=== PATIENT | female | born 1955 | race Caucasian/White ===

== ENCOUNTER 2018-12-27 18:28 | Inpatient (IN) | payer OTHER ==
[~2018-12-27] VITALS: Ht 157.5 cm; Wt 66.4 kg
--- NOTE | ~2018-12-27 | HC ---
[facility] [place] [address] CONSULTATION Name: ROSE HERNANDEZ Room #: 356-P ADM IN M.R.#: [id number] Admission: 12/27/18 ������������������ Attend Phys: Lamin Morgan MD Discharge: ������������������ Date of : 59 Report #: [id number] THIS REPORT FOR: //name// CC: Lamin Sher DATE OF SERVICE: 01/05/2019 HISTORY OF PRESENT ILLNESS: This is a 73-year-old white female admitted with acute mental status changes, was noted to have a critically severe sodium of 117. She had mental status changes with confusion, toxic metabolic encephalopathy. She also had hypokalemia, bilateral lower extremity cellulitis as well as acute respiratory failure with acute exacerbation of chronic obstructive pulmonary disease. She has been followed closely and was treated in the intensive care unit, followed by Pulmonary Medicine. Continuing to get BiPAP at night with nasal prong O2 during the day. She has had some progress and improvement as far as her cognition. Continuing to treat her hyponatremia. Last sodium was 131 with K 3.0. We are seeing her in rehabilitation medicine consultation. PAST MEDICAL HISTORY: Includes hypertension, COPD. She had a blood clot with DVT and pulmonary embolism with control and . History of chronic neck pain and back pain. MEDICATIONS: Please see the full medication listing. ALLERGIES: Include vitamins, herbals, and supplements per report. HABITS: Tobacco abuse, 1-2 packs per day, [id number]. SOCIAL HISTORY: House, spouse. No assistive device, 2 steps in, 14 steps to the bedroom was independent in the community without gait aids. works, but she notes that he has some flexibility. They have 6 children of which several of them are in the area. REVIEW OF SYSTEMS: No complaints of current shortness of breath. Note, she has some emotional lability, decreased endurance concerns regarding her balance. No chest pain, no abdominal discomfort. No fever or chills, bowel or bladder changes. PHYSICAL EXAMINATION: GENERAL: A 63-year-old white female in no obvious distress. VITAL SIGNS: Last recorded temperature 97.7, pulse 95, respirations 21, blood pressure 118/68. The patient is alert. HEENT: Appeared to be benign. She does have some emotional lability, almost started to cry with her family assisting her. She did better with change in [facility] [address] [place] [address] CONSULTATION Name: ROSE HERNANDEZ Room #: 356-P [facility] IN M.R.#: [id number] Admission: 12/27/18 ������������������ Attend Phys: Lamin Morgan MD Discharge: ������������������ Date of : 59 Report #: [id number] topic. NEUROLOGIC: There is some definite latency to her responses. Facies appeared symmetric. She is on nasal prong O2, currently 3 liters. Functional range of motion of the upper extremity strength is grade 4-/5. DTRs are trace to 1. Lower extremities, no focal calf swelling, functional range of motion with strength grade 3+ to 4-/5. DTRs are trace to 1. She is min assist with sit to stand, min assist to ambulate 100 feet, has decreased balance, lower extremity dressing is min assist. ASSESSMENT: A 73-year-old white female with the following problem list: 1. Toxic metabolic encephalopathy. 2. Gait instability with decreased balance. 3. Critically severe hyponatremia. 4. Hypokalemia. 5. Acute respiratory failure. 6. Acute exacerbation of chronic obstructive pulmonary disease. 7. Bilateral lower extremity cellulitis. 8. Paroxysmal atrial fibrillation with cardiology involved. 9. Generalized anxiety disorder. 10. Chronic tobacco abuse. 11. History of chronic neck and back pain. PLAN: Would agree with a short acute, in-hospital, inpatient rehabilitation stay to maximize her functional independence, so she can return back to the home setting. With transfer to the acute inpatient rehab sandhu, she could have the same physicians continue to follow for good continuity of care, which would be in this patient's best interest. She continues on the CPAP at night with pulmonary closely involved as well as the multiple other consulting physicians. Discussion was held with the family members that were present. Insurance precertification issues to be checked on. Several family members are there and involved with the discussion. ��������������������������������������������� ���������������������������������������� By: ��������������������������������������������� 1326 [id number] Itz Grande MD /nt
[2018-12-27 18:28] VITALS: BP 111/60
[2018-12-27] MEDS ORDERED: NORVASC5 MG PO (19:11)
[2018-12-27] MEDS ORDERED: ATENOLOL 100MG100 M2 PO (19:11)
[2018-12-27] MEDS ORDERED: PAXIL10 MG PO (19:12)
[2018-12-27] MEDS ORDERED: BINOSTO70 MG PO (19:12)
[2018-12-27] MEDS ORDERED: ZESTORETIC 20-1 EAC3 PO (19:12)
[2018-12-27] MEDS ORDERED: NORCO 5-325 TA1 EACH PO (19:13)
[2018-12-27] MEDS ORDERED: FLEXERIL PO (19:13)
[2018-12-27 19:14] LABS: HEMATOCRIT 38.4 % (37.0-47.0); HEMOGLOBIN 13.5 gm/dL (12.0-15.0); MCH 31.1 pg (26.0-34.0); MCHC 35.3 g/dL (28.0-37.0); MCV 88.2 fL (80.0-100.0); PLATELET COUNT 436 thou/uL (150-400); RBC 4.35 mil/uL (4.20-5.00); RDW 13.2 % (10.5-14.5); WBC 13.6 thou/uL (4.0-11.0)
[2018-12-27 19:18] LABS: URINE BILIRUBIN NEGATIVE (Negative); URINE BLOOD TRACE (Negative); URINE CLARITY CLEAR; URINE COLOR YELLOW; URINE GLUCOSE-RANDOM* NEGATIVE (Negative); URINE KETONES 1+ (Negative); URINE LEUKOCYTES-REFLEX NEGATIVE (Negative); URINE NITRITE-REFLEX NEGATIVE (Negative); URINE PROTEIN (DIPSTICK) NEGATIVE (Negative); URINE UROBILINOGEN 0.2 E.U./dl (0.2-1.0)
[2018-12-27 19:25] LABS: BE(vivo) 6.4 mmol/L (-2 to +3); PCO2 39.5 mmHg (35.0-45.0); PO2 86.8 mmHg (80.0-100.0); pH 7.499 (7.360-7.450); sO2 97.3 % (92.0-98.0)
[2018-12-27 19:28] LABS: APTT 29.1 Seconds (24.5-32.8); PROTIME 10.7 Seconds (9.3-11.4)
[2018-12-27 19:29] LABS: AMP/METHAMP Negative (Negative); BARBITURATES Negative (Negative); BENZODIAZEPINES Negative (Negative); COCAINE Negative (Negative); METHADONE Negative (Negative); OPIATES Negative (Negative); PCP Negative (Negative)
[2018-12-27 19:33] LABS: ALBUMIN 3.4 g/dL (3.4-5.0); BUN 7 mg/dL (7-18); CHLORIDE 78 mmol/L (98-107); CO2 32 mmol/L (21-32); CREATININE 0.6 mg/dL (0.6-1.0); DIRECT BILIRUBIN 0.2 mg/dL (<0.1-0.3); GLUCOSE 134 mg/dL (74-106); SGOT 42 U/L (15-37); SGPT 34 U/L (30-65); TOTAL BILIRUBIN 0.9 mg/dL (<0.1-1.0); TOTAL PROTEIN 7.3 g/dL (6.4-8.2); TROPONIN-I <0.06 ng/mL (<0.06)
[2018-12-27 19:35] LABS: ABSOLUTE NEUTROPHILS 12.9 thou/uL (1.4-8.2)
[2018-12-27 19:37] LABS: ANION GAP 7 mmol/L (7-16)
[2018-12-27 19:40] LABS: POTASSIUM 2.5 mmol/L (3.5-5.1); SODIUM 117 mmol/L (136-145)
[2018-12-27 20:18] VITALS: BP 111/61
[2018-12-27 20:25] VITALS: BP 110/67
[2018-12-27 20:40] VITALS: BP 119/50
[2018-12-27 23:50] VITALS: BP 112/71
[2018-12-28 06:44] VITALS: BP 113/55
[2018-12-28 06:58] LABS: CALCIUM 8.2 mg/dL (8.5-10.1); CREATININE 0.5 mg/dL (0.6-1.0)
[2018-12-28 06:59] LABS: POTASSIUM 3.5 mmol/L (3.5-5.1)
[2018-12-28 07:22] VITALS: BP 102/50
--- NOTE | 2018-12-28 07:33 | NUR ---
PATIENT IS ALERT TO SELF SITUATION AND TIME. PATIENT IS ON 2L NC. PATIENT IS SOB UPON AMBULATION TO BATH ROOM BSC IS ENCOURAGED. PATIENT IS NSR ON TELE. PATIENTS LUNGS ARE DIMINISHED AND WHEEZY. PATIENT REFUSES RT TREATMENTS. PATIENTS ELECTROLYTES REPLACED. PATIENT HAS ABRASION TO LT WRIST LT FOREHEAD. PATIENT HAS REDDNESS TO BILATERAL FEET WITH 2(+) EDEMA. PATIENT IS RESTING COMFORTABLY IN BED. WCM. FALL PRECAUTIONS IN PLACE.
--- NOTE | 2018-12-28 08:00 | EKG ---
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 : 1955 Requested By: Juwan Bah Order Number: [id number] MD: Asad Monaco Measurements Intervals [place] Rate: 69 P: 58 CT: 207 QRS: 6 QRSD: 81 T: 49 QT: 413 QTc: 443 Interpretive Statements Sinus rhythm Nonspecific ST segment abnormality Compared to ECG 02/20/2004 07:21:25 No significant change was found Electronically Signed On 12-28-2018 8:00:42 CDT by Asad Monaco [email or web address] ��������������������������������������������� <ELECTRONICALLY SIGNED> ���������������������������������������� By: Asad Monaco MD, [facility] ��������������������������������������������� 12/28/18 0800 1848 Asad Monaco MD, [facility] /EPI
[2018-12-28 12:37] VITALS: BP 98/50
--- NOTE | 2018-12-28 13:17 | 2DMMODE ---
[facility] [address] [place] [address] 2 D/M-MODE ECHOCARDIOGRAM Name: ROSE HERNANDEZ Room #: 355-P ADM IN M.R.#: [id number] ������������� Admission: 12/27/18 ������������� Attend Phys: Lamin Morgan MD Discharge: ��� ������������� ��� Date of : 59 Date of Service: 12/28/18 1316 �� Report #: [id number] �������� ��������������������������������������������[id number] THIS REPORT FOR: //name// APPROVED REPORT Study performed: 12/28/2018 12:12:53 EXAM: Comprehensive 2D, Doppler, and color-flow Echocardiogram Patient Location: Echo lab Room #: 355 Status: routine BSA: 1.67 HR: 80 bpm BP: 1032/50 mmHg Rhythm: NSR Other Information Study Quality: Adequate Indications COPD Dyspnea Hypertension/HDD 2D Dimensions RVDd: 32.73 mm IVSd: 9.07 (7-11mm) LVOT Diam: 18.71 (18-24mm) LVDd: 39.76 mm PWd: 9.17 (7-11mm) Ascending Ao: 25.27 (22-36mm) LVDs: 26.33 (25-40mm) Aortic Root: 30.02 mm IVC: 14.00 mm Volumes Left Atrial Volume (Systole) Single Plane 4CH: 39.55 mL Single Plane 2CH: 40.39 mL LA ESV Index: 26.00 mL/m2 Aortic Valve AoV Peak Justin.: 1.62 m/s AO Peak Gr.: 10.44 mmHg LVOT Max P.14 mmHg LVOT Max V: 1.34 m/s KATHERINE Vmax: 2.27 cm2 Mitral Valve E/A Ratio: 1.5 [facility] [place] [address] 2 D/M-MODE ECHOCARDIOGRAM Name: ROSE HERNANDEZ Room #: 355-[facility].#: [id number] ������������� Admission: 12/27/18 ������������� Attend Phys: Lamin Morgan MD Discharge: ��� ������������� ��� Date of : 59 Date of Service: 12/28/18 1316 �� Report #: [id number] �������� ��������������������������������������������[id number] MV Decel. Time: 157.04 ms MV E Max Justin.: 0.88 m/s MV A Justin.: 0.59 m/s MV PHT: 45.54 ms IVRT: 83.04 ms Pulmonary Valve PV Peak Justin.: 1.17 m/s PV Peak Gr.: 5.44 mmHg Pulmonary Vein P Vein S: 0.60 m/s P Vein A: 0.24 m/s P Vein D: 0.43 m/s P Vein A Dur.: 83.0 msec P Vein S/D Ratio: 1.40 Tricuspid Valve TR Peak Justin.: 2.77 m/s TR Peak Gr.: 30.72 mmHg PA Pressure: 36.00 mmHg Left Ventricle The left ventricle is normal size. There is normal LV segmental wall motion. There is normal left ventricular wall thickness. Left ventricular systolic function is normal. The left ventricular ejection fraction is within the normal range. LVEF is 60-65%. The left ventricular diastolic function is normal. Right Ventricle The right ventricle is normal size. The right ventricular systolic function is normal. Atria The left atrium size is normal. The right atrium size is normal. Aortic Valve The aortic valve is normal in structure. No aortic regurgitation is present. There is no aortic valvular stenosis. Mitral Valve The mitral valve is normal in structure. Trace mitral regurgitation. No evidence of mitral valve stenosis. Tricuspid Valve The tricuspid valve is normal in structure. There is trace to mild tricuspid regurgitation. Estimated PAP 36 mmHg. There is mild pulmonary hypertension. [address] [address] 2 D/M-MODE ECHOCARDIOGRAM Name: ROSE HERNANDEZ Room #: 355-P [facility] IN [place].#: [id number] ������������� Admission: 12/27/18 ������������� Attend Phys: Lamin Morgan MD Discharge: ��� ������������� ��� Date of : 59 Date of Service: 12/28/18 1316 �� Report #: [id number] �������� ��������������������������������������������[id number] Pulmonic Valve The pulmonary valve is normal in structure. There is no pulmonic valvular regurgitation. Great Vessels The aortic root is normal in size. IVC is normal in size and collapses >50% with inspiration. Pericardium There is no pericardial effusion. <Conclusion> The left ventricle is normal size. There is normal left ventricular wall thickness. Left ventricular systolic function is normal. The left ventricular diastolic function is normal. The right ventricle is normal size. The left atrium size is normal. The right atrium size is normal. The aortic valve is normal in structure. Trace mitral regurgitation. There is trace to mild tricuspid regurgitation. Estimated PAP 36 mmHg. ��������������������������������������������� <ELECTRONICALLY SIGNED> ���������������������������������������� By: Hunter Bird MD ��������������������������������������������� 12/28/18 1316 15 1316 Hunter Bird MD /INF
--- NOTE | 2018-12-28 13:54 | NUR ---
ASSESSMENT: CM REVIEWED CHART AND MET WITH PATIENT AND HER TWO DAUGHTERS AT THE BEDSIDE. PT WAS ADMITTED WITH HYPONATREMIA/AMS. PT REPORTS SHE LIVES IN A HOUSE WITH HER . PT REPORTS SHE HAS TWO STEPS TO ENTER WITH NO HANDRAILS. PT REPORTS SHE HAS ABOUT 14 STEPS WITH HANDRAILS TO HER BEDROOM. PT REPORTS BEING FULLY INDEPENDENT WITH ADLS AND AMBULATION. PT REPORTS SHE DOES NOT WEAR OXYGEN AT HOME AND DOES NOT USE ANY DME. PT STATES SHE IS VERY INDEPENDENT. PT REPORTS SHE HAS NOT HAD HH IN THE PAST NOR BEEN TO A SNF/REHAB. CM DISCUSSED ROLE. PT STATING SHE WILL HAVE NO NEEDS AND SHE WANTS TO GO HOME TODAY. DAUGHTERS ENCOURAGING THEIR MOTHER TO STAY. CM WILL CONTINUE TO FOLLOW TO ASSIST NEEDED. PT STATING SHE WILL NOT NEED HH.
[2018-12-28 16:15] VITALS: BP 105/79
--- NOTE | 2018-12-28 17:56 | NUR ---
PATIENT DOES NOT SEEM TO BE IN PAIN. PLEASANT WITH CARE. SHE INSISTS TO STAFF AND FAMILY SHE IS NOT SICK ENOUGH TO BE HERE. SHE WANTS TO GO TO HOME. SODIUM CONT TO IMPROVE BUT NOT ENOUGH. SHE WAS IN MRI/ECHO FOR SO LONG HER NOON SODIUM WAS DRAWN AT 2PM. A RESULT HER 1800 SODIUM WILL BE DONE AT 2000. PATIENT CONT TO REST IN BED. FAMILY IN ROOM. SHE WAS NOTED TO AHVE SOB AND PREFERRED TO SIT TO BREATH BETTER. BREATHING IS DIFFICULT WHEN SHE LIES FLAT OF JUST SLIGHTLY ELEVATED. WILL CONT WITH PLAN OF CARE.
[2018-12-28 20:05] VITALS: BP 102/61
[2018-12-29 04:00] VITALS: BP 124/88
--- NOTE | 2018-12-29 06:08 | NUR ---
PATIENT IS PROGRESSING SLOWLY IN HER CARE PLAN. VITAL SIGNS STABLE WITH PATIENT HAVING NO COMPLAINTS OF NAUSEA. PATIENT DID COMPLAIN OF MINIMAL PAIN DUE TO HEADACHE WHICH WAS TREATED EFFECTIVELY WITH PRN MEDICATION AND NON PHARMACOLOGICAL INTERVENTION. PATIENT REMAINED MOSTLY ORIENTED THROUGHOUT SHIFT WITH ONLY SLIGHT CONFUSION NOTED ONCE WHEN PATIENT WAS AWOKEN FOR 0400 ASSESSMENT. BREATHING STABLE ON TWO LITERS NASAL CANNULA EVIDENCED BY SPOT OXYGENATION CHECKS. SHE HAS BEEN UP TO RESTROOM MULTIPLE TIMES WITH ASSISTANCE INCIDENT FREE BUT REMAINS A HIGH FALL RISK. PATIENT IS ANXIOUS TO DISCHARGE SOON. CONTINUE PLAN OF CARE.
[2018-12-29 08:02] VITALS: BP 125/97
[2018-12-29 10:29] LABS: ABSOLUTE NEUTROPHILS 7.4 thou/uL (1.4-8.2); BASOPHILS 0.4 % (0.0-2.0); EOSINOPHILS 0.2 % (0.0-3.0); HEMATOCRIT 36.3 % (37.0-47.0); HEMOGLOBIN 12.6 gm/dL (12.0-15.0); LYMPHOCYTES 9.8 % (24.0-44.0); MCH 31.7 pg (26.0-34.0); MCHC 34.8 g/dL (28.0-37.0); MCV 91.1 fL (80.0-100.0); MONOCYTES 6.9 % (1.0-8.0); PLATELET COUNT 426 thou/uL (150-400); POLYS 82.7 % (36.0-66.0); RBC 3.98 mil/uL (4.20-5.00); RDW 13.2 % (10.5-14.5)
[2018-12-29 10:30] LABS: BE(vivo) 1.7 mmol/L (-2 to +3); HCO3 24.6 mmol/L (22.0-26.0); PCO2 33.6 mmHg (35.0-45.0); PO2 134.2 mmHg (80.0-100.0); pH 7.483 (7.360-7.450); sO2 98.9 % (92.0-98.0)
[2018-12-29 10:43] LABS: CALCIUM 8.4 mg/dL (8.5-10.1); CREATININE 0.7 mg/dL (0.6-1.0); MAGNESIUM 1.9 mg/dL (1.8-2.4)
[2018-12-29 10:44] LABS: POTASSIUM 2.8 mmol/L (3.5-5.1)
[2018-12-29 11:52] VITALS: BP 119/77
--- NOTE | 2018-12-29 14:37 | NUR ---
ON-GOING ASSESSMENT: CM REVIEWED CHART AND MET WITH PATIENT AT THE BEDSIDE. PT REPORTS SHE IS HOPING SHE WILL BE ABLE TO GO HOME TOMORROW. PTS SODIUM IS 128 AND PT IS STILL ON 2L OF OXYGEN. PT IS HOPEFUL TO GET OFF OXYGEN BEFORE GOING HOME SHE DOES NOT HAVE IT ARRANGED AT HOME. PT DOES NOT FEEL SHE NEEDS HH. CM WILL CONTINUE TO FOLLOW TO ASSIST NEEDED.
--- NOTE | 2018-12-29 16:12 | NUR ---
Assumed care of Pt at 0700. Pt alert and oriented x4 in mild resp distress. very diminished sounds on 2L NC. up w/ stand by assist - wobbly gait. abx regimen changed by physician. family requesting pulm consult - physician notified. potassium critically low - physician notified - being replaced. SA on telemetry. calls out appropriately. pt progressing toward poc goals.
[2018-12-29 16:13] VITALS: BP 112/79
[2018-12-29 19:25] VITALS: BP 120/79
[2018-12-30 03:57] VITALS: BP 118/83
--- NOTE | 2018-12-30 04:34 | NUR ---
SLEPT MOST OF SHIFT. DENIES COMPLAINTS OF PAIN, BECOMES SHORTNESS OF AIR WITH ACTIVITY. PATIENT ALERT AND ORIENTED X4. AT BEDSIDE. TELEMETRY SHOWS AFIB AT SHIFT CHANGE, EKG DONE FOR VERIFICATION. Ericka BORJA MEDICAL TERRITORY MANAGER NOTIFIED. AT REST RATE 90 - 110. WITH ACITIVITY WILL INCREASE TO 120-150. UP WITH STANDBY ASSIST ONLY. MAINTAIN SAFE ENVIRONMENT. WORKING ON GOALS AND PLAN OF CARE FOR NOC. NOT PROGRESSING TOWARDS DISCHARGE GOALS AT THIS TIME. CONTINUE TO ASSES CLOESLY.
[2018-12-30 05:29] LABS: HEMATOCRIT 36.2 % (37.0-47.0); HEMOGLOBIN 12.6 gm/dL (12.0-15.0); MCH 31.7 pg (26.0-34.0); MCHC 34.8 g/dL (28.0-37.0); MCV 91.3 fL (80.0-100.0); RBC 3.96 mil/uL (4.20-5.00); RDW 13.3 % (10.5-14.5); WBC 4.5 thou/uL (4.0-11.0)
[2018-12-30 05:45] LABS: CALCIUM 8.9 mg/dL (8.5-10.1); CREATININE 0.6 mg/dL (0.6-1.0); MAGNESIUM 1.7 mg/dL (1.8-2.4)
[2018-12-30 07:14] VITALS: BP 128/83
--- NOTE | 2018-12-30 07:21 | EKG ---
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 : 1955 Requested By: Delisa Senior Order Number: [id number] MD: Asad Monaco Measurements Intervals [place] Rate: 101 P: ID: QRS: 33 QRSD: 81 T: 53 QT: 344 QTc: 446 Interpretive Statements Atrial fibrillation Nonspecific ST segment abnormality Compared to ECG 12/27/2018 18:48:20 Sinus rhythm no longer present Electronically Signed On 12-30-2018 7:21:44 CDT by Asad Monaco [email or web address] ��������������������������������������������� <ELECTRONICALLY SIGNED> ���������������������������������������� By: Asad Monaco MD, [facility] ��������������������������������������������� 12/30/18 0721 36 36 Asad Monaco MD, [facility] /EPI
[2018-12-30 11:14] VITALS: BP 122/88
--- NOTE | 2018-12-30 15:17 | EKG ---
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 : 1955 Requested By: Asad Monaco Order Number: [id number] MD: Francisco Fu Measurements Intervals [place] Rate: 93 P: [place]: QRS: 27 QRSD: 83 T: 33 QT: 353 QTc: 440 Interpretive Statements Atrial fibrillation Ventricular premature complex Compared to ECG 12/29/2018 21:37:13 Ventricular premature complex(es) now present ST (T wave) deviation no longer present Electronically Signed On 12-30-2018 15:17:09 CDT by Francisco Fu [email or web address] ��������������������������������������������� <ELECTRONICALLY SIGNED> ���������������������������������������� By: Francisco Fu MD ��������������������������������������������� 12/30/18 1517 1157 1157 Francisco Fu MD /EPI
[2018-12-30 15:19] VITALS: BP 124/80
--- NOTE | 2018-12-30 17:34 | NUR ---
Assumed care of Pt at 0700. More labored breathing this morning. severely diminished lung sounds. EKG showing controlled afib. fluid restriction initiated. pulmonary and cardiology consulted. CT chest negative for PE. many family members at bedside throughout day. breathing more comfortably throughout shift. up w/ SBA. showered. calls out appropriately. slow progress toward poc goals.
--- NOTE | 2018-12-30 19:10 | EEG ---
[facility] [place] [address] ELECTROENCEPHALOGRAM Name: ROSE HERNANDEZ Room #: 355-P ADM IN M.R.#: [id number] ������������������ Admission: 12/27/18 ������������������ Attend Phys: Lamin Morgan MD Discharge: ������������������ Date of : 59 Report #: [id number] ����������������������������������������������������������������� [id number] THIS REPORT FOR: //name// CC: Lamin Sher DATE OF SERVICE: 12/28/2018 This patient is being evaluated for altered mental status. EEG was done by placing the electrodes by standard 10-20 system of electrode placement. Both referential and sequential montages were used for recording. Background activity in this patient's EEG is about 10 Hz and 30 microvolt. The patient became drowsy that is associated with bilateral slowing and vertex sharp waves. Photic stimulation was unremarkable. Throughout the record, no active epileptiform activity was noticed. IMPRESSION: This patient's EEG is intermixed with theta range slowing on both sides that is a mild finding and can occur with drowsiness, effect of psychotropic medication, encephalopathy, etc. No active epileptiform activity was noticed during this record and the EEG was mostly unremarkable. Thank you very much for this referral. ���������������������������������������� <ELECTRONICALLY SIGNED> ���������������������������������������� By: Jason Rodriguez MD ��������������������������������������������� 12/30/18 1910 8 Jason Rodriguez MD /nt
[2018-12-30 19:31] VITALS: BP 127/67
[2018-12-31] VITALS (15 sets, daily range): BP systolic 112–143; BP diastolic 76–102
--- NOTE | 2018-12-31 03:29 | NUR ---
ASSUMED PT CARE AROUND 1900. A&OX4, FORGETFUL. PT ANXIOUS AT TIMES. PRN ANXIETY MEDICATION GIVEN. C/O NECK PAIN. PAIN MEDICATION GIVEN WITH SOME RELIEF. UP W/ SBA TO BTR. SOA W/ EXERTION. FAMILY AT BEDSIDE MOST OF THE NIGHT. AFIB ON TELE. RATE 90S-110S MOST OF THE SHIFT. PT SLEPT OFF AND ON DURING THE NIGHT. FALL PRECAUTIONS IN PLACE. PROGRESSING SLOWLY TOWARD POC GOALS. WILL CONTINUE TO MONITOR FURTHER.
[2018-12-31 05:30] LABS: CALCIUM 9.2 mg/dL (8.5-10.1); CREATININE 0.7 mg/dL (0.6-1.0); MAGNESIUM 2.1 mg/dL (1.8-2.4)
[2018-12-31 05:44] LABS: POTASSIUM 4.4 mmol/L (3.5-5.1)
[2018-12-31 05:58] LABS: HEMATOCRIT 40.1 % (37.0-47.0); HEMOGLOBIN 13.8 gm/dL (12.0-15.0); MCH 32.1 pg (26.0-34.0); MCHC 34.5 g/dL (28.0-37.0); MCV 93.3 fL (80.0-100.0); RBC 4.3 mil/uL (4.20-5.00); RDW 13.8 % (10.5-14.5)
--- NOTE | 2018-12-31 11:49 | NUR ---
Assumed care of patient at 0700. Vitals have been stable. Patient is alert and oriented x4, anxious at times. Maintaining oxygen saturations on 2L NC. Patient reports some SOB this morning, but sitting up in bed, eating breakfast, visiting with family at bedside. Loose cough, unable to produce any sputum. Up with assist, fall precautions in place. Bed alarm on. Sitting edge of bed after breakfast. Beginning to feel anxious and more SOB, but still maintaining oxygen saturations on 2L NC. Denies need for PRN pain medications or muscle relaxer. Dr. Morgan at bedside, followed by Dr. Wu. Daughter out to nurse's station, states patient is getting diaphoretic, more anxious and SOB. Vitals remain stable, on 2L NC, but patient is more tachypneic. Dr. Wu requests transfer to ICU. May give onetime dose of Ativan IV once transferred to ICU and to have Bipap available. Belongings gathered. Transported to room 244; daughters and in ICU waiting room. Patient settled into new room / bed; IV Ativan given. RT at bedside with Bipap. Bedside report given to
--- NOTE | 2018-12-31 11:58 | NUR ---
SW reviewed chart and spoke with nursing and attending physician. Pt was transferred to ICU from 3W this morning due to respiratory distress. SW is following to assist as needed with discharge planning.
[2018-12-31 12:29] LABS: BE(vivo) 2.7 mmol/L (-2 to +3); HCO3 30.2 mmol/L (22.0-26.0); PCO2 58.8 mmHg (35.0-45.0); PO2 91.4 mmHg (80.0-100.0); sO2 96.3 % (92.0-98.0)
[2018-12-31 12:30] LABS: pH 7.328 (7.360-7.450)
[2018-12-31] MEDS ORDERED: CARDIZEM CD120 MG PO (12:35)
[2018-12-31] MEDS ORDERED: XARELTO20 MG PO (12:36)
[2018-12-31 16:16] LABS: BE(vivo) 4.7 mmol/L (-2 to +3); HCO3 30.7 mmol/L (22.0-26.0); PCO2 50.8 mmHg (35.0-45.0); PO2 76.3 mmHg (80.0-100.0); pH 7.399 (7.360-7.450); sO2 95.1 % (92.0-98.0)
[2018-12-31 19:08] LABS: BE(vivo) 6.6 mmol/L (-2 to +3); HCO3 33.2 mmol/L (22.0-26.0); PCO2 55.4 mmHg (35.0-45.0); PO2 75.1 mmHg (80.0-100.0); pH 7.395 (7.360-7.450); sO2 94.8 % (92.0-98.0)
--- NOTE | 2018-12-31 20:04 | NUR ---
PATIENT TRANSFERRED FROM [facility], ALERT AND ORIENTED X4, ANXIOUS AT TIME. PLACED ON BIPAP. NO COMPLAINTS OF PAIN. DURAN PATENT AND DRAINING. ABG MONITORED, DR. MAYER NOTIFIED AND AWARE. NO NEW ORDERS, WILL MONITOR IN THE MORNING. FAMILY AND PATIENT UPDATED ON THE PLAN OF CARE. NO SIGNS OF ACUTE DISTRESS NOTED AT THIS TIME. WILL CONTINUE TO MONITOR.
[2019-01-01] VITALS (27 sets, daily range): BP systolic 91–136; BP diastolic 57–97
[2019-01-01 05:07] LABS: ABSOLUTE NEUTROPHILS 6.9 thou/uL (1.4-8.2); BASOPHILS 0.2 % (0.0-2.0); EOSINOPHILS 0.2 % (0.0-3.0); HEMATOCRIT 38.6 % (37.0-47.0); HEMOGLOBIN 13.3 gm/dL (12.0-15.0); LYMPHOCYTES 7.2 % (24.0-44.0); MCHC 34.4 g/dL (28.0-37.0); MCV 93.1 fL (80.0-100.0); MONOCYTES 2.6 % (1.0-8.0); PLATELET COUNT 345 thou/uL (150-400); POLYS 89.8 % (36.0-66.0); RBC 4.15 mil/uL (4.20-5.00); RDW 13.5 % (10.5-14.5); WBC 7.7 thou/uL (4.0-11.0)
--- NOTE | 2019-01-01 05:09 | NUR ---
SLEPT MOST OF SHIFT WITH BIPAP ON. TOLERATING BIPAP. OFF FOR 15 MIN BUT ON 6L/NC, SO COULD EAT BUT BECAME WINDED AND PLACED BACK ON BIPAP. WORKING ON GOALS AND PLAN OF CARE FOR NOC. REMAINS ALERT AND ORIENTED X4 BUT ANXIOUS. XANAX GIVEN PER PRN ORDERS FOR COMFORT. PROGRESSING SLOWLY TOWARDS GOALS FOR TRANSFER OUT OF ICU TO FLOOR. CONTINUE TO ASSES CLOESLY. AT BEDSIDE TONIGHT.
[2019-01-01 05:12] LABS: BE(vivo) 8.4 mmol/L (-2 to +3); HCO3 35.6 mmol/L (22.0-26.0); PCO2 60.3 mmHg (35.0-45.0); PO2 75.4 mmHg (80.0-100.0); pH 7.389 (7.360-7.450); sO2 94.6 % (92.0-98.0)
[2019-01-01 05:21] LABS: ALBUMIN 3.5 g/dL (3.4-5.0); CALCIUM 8.9 mg/dL (8.5-10.1); CREATININE 0.5 mg/dL (0.6-1.0); POTASSIUM 4.6 mmol/L (3.5-5.1); TOTAL BILIRUBIN 0.3 mg/dL (<0.1-1.0); TOTAL PROTEIN 6.6 g/dL (6.4-8.2)
--- NOTE | 2019-01-01 06:46 | NUR ---
NOTIFIED Katy BORJA RECREATION WORKER OF WEIGHT GAIN, BNP 4724, BLOOD TINGED URINE THIS AM, AND PATIENT IS STILL WINDED. NO NEW ORDERS AT THIS TIME. WILL CONTINUE TO ASSES ETIENNELY.
--- NOTE | 2019-01-01 13:28 | NUR ---
PT ALERT AND ORIENTED TIMES FOUR. VSS, 100%BIPAP. AFIB OF TELE. PT DENIES PAIN. C/O SOA. PT EXTREMELY ANXIOUS PRN ANXIETY MEDICATIONS GIVEN WITH GOOD RELEIF. PT WORKED WELL WITH PT/OT. SAT IN THE CHAIR FOR SOME TIME TODAY. PT TOLERATES SMALL PORTIONS OF HER MEALS TODAY. FAMILY AT BEDSIDE. WILL CONTINUE TO MONITOR.
[2019-01-02] VITALS (24 sets, daily range): BP systolic 99–133; BP diastolic 62–96
--- NOTE | 2019-01-02 06:45 | NUR ---
END OF SHIFT SUMMARY: Pt progressing toward goals. Anxiety much improved and pt much less SOA with Xanax 0.5 mg q 6 hours prn. Was on 4 liter canula til 0430 and then awoke SOA and went on Bipap 14/8, 30%. Pt currently sleeping comfortably. Breath sounds remain diminished throughout, intermittent left upper lobe wheezing. Monitor remains a-fib with rate in 80's. Urine output adequate, 750 cc out this shift.
[2019-01-02 10:10] LABS: BE(vivo) 4.3 mmol/L (-2 to +3); PCO2 55.1 mmHg (35.0-45.0); PO2 76.7 mmHg (80.0-100.0); pH 7.368 (7.360-7.450); sO2 94.7 % (92.0-98.0)
--- NOTE | 2019-01-02 17:44 | NUR ---
PT ALERT AND ORIENTED TIMES FOUR. VSS, 100%BIPAP OR 4L, AFIB ON TELE, DURAN TO DD. PT DENIES PAIN. C/O SOA ON ECERTION. PT CONTINUES TO HAVE ALOT OF ANXIETY, PRN MEDICATIONS GIVEN WITH GOOD RELEIF. PT TOLERATES MEDS AND MEALS. PT UP TO CHAIR FOR SOME PART OF THE SHIFT TODAY. FAMILY AT BEDSIDE. PT SLOWLY PROGRESSING TOWRADS POC GOALS.
[2019-01-03] VITALS (19 sets, daily range): BP systolic 106–137; BP diastolic 67–88
[2019-01-03 05:20] LABS: BE(vivo) 11.5 mmol/L (-2 to +3); HCO3 36.8 mmol/L (22.0-26.0); PCO2 50.1 mmHg (35.0-45.0); PO2 80.7 mmHg (80.0-100.0); pH 7.484 (7.360-7.450); sO2 96.5 % (92.0-98.0)
[2019-01-03 05:27] LABS: HEMATOCRIT 38.8 % (37.0-47.0); HEMOGLOBIN 13.1 gm/dL (12.0-15.0); MCH 31.7 pg (26.0-34.0); MCHC 33.9 g/dL (28.0-37.0); MCV 93.4 fL (80.0-100.0); RBC 4.15 mil/uL (4.20-5.00); RDW 13.6 % (10.5-14.5); WBC 5.9 thou/uL (4.0-11.0)
[2019-01-03 05:38] LABS: CALCIUM 8.7 mg/dL (8.5-10.1); CREATININE 0.6 mg/dL (0.6-1.0); MAGNESIUM 2.2 mg/dL (1.8-2.4)
--- NOTE | 2019-01-03 06:39 | NUR ---
Pt on bipap most of the night switched to 4L nasal cannula at 0600,pt reports resting well overnight. Pt gets soa with very minimal exertion, breath sounds are diminished throughout. Vitals WNL and Afib with controlled rate.Rowe with adequate urine output. Progressing slowly towards dc goals.
--- NOTE | 2019-01-03 09:47 | NUR ---
Assess for length of stay. Admit with AMS. COPD and pt with +tobacco use, wanting to quit smoking. Tolerating meals. No hx diabetes noted, Glucose levels elevated up to 210-on steroids. Recommend start accuchecks and SS insulin. May require carb controlled diet. Low nutrition risk.
--- NOTE | 2019-01-03 09:50 | NUR ---
Glucose levels elevated, on steroids. Recommend start accuchecks and may need SS insulin coverage and carb controlled diet.
--- NOTE | 2019-01-03 14:46 | NUR ---
patient to transfer to today. Dtr at bedside. Reviewed role of casemgt following for dc planning needs. Possible Rehab/hh care. Therapy evals in process. Casemgt following.
--- NOTE | 2019-01-03 15:52 | NUR ---
PATIENT ALERT AND ORIENTED X4, A-FIB ON ASSISTANT NURSE MANAGER. ON 3L NASAL CANNULA, SHORTNESS OF BREATH FOR INCREASED ACTIVITY. BIPAP AT NIGHT. TOLERATING REGULAR DIET. DURAN REMOVED AT 1330. UP WITH STANDBY ASSISTANCE, REPORT GIVEN TO ONCOMING NURSE. NO SIGNS OF ACUTE DISTRESS NOTED AT THIS TIME. PATIENT TRANSFERRED TO [facility].
--- NOTE | 2019-01-03 15:53 | NUR ---
ADMITTED PATIENT TO UNIT AT THIS TIME. SHE IS ALERT ORIENTED X4. SHE DOES HOWEVER HAVE SHORTNESS OF BREATH. SHE DENIES PAIN AT THIS TIME. PREFERS TO SIT 90 DEGREES ON THE BED TO BETTER BREATHING. WILL CONT WITH PLAN OF CARE.
[2019-01-04 03:45] VITALS: BP 124/79
--- NOTE | 2019-01-04 05:01 | NUR ---
Patient ALOx4 but forgetful at times. Patient forgot I had already administered xanax even though I had discussed it with the patient and . Patient later confused at one point if someone woke her up to ask questions when this RN had done so. Patient remains weak and has SOB with exertion. Patient ambulates very slowly, requires oxygen, and needs someone to be on one side of her. Patient put on bipap this evening and has tolerated well. Oxygen sat remains in the 90's. The patient has had episodes of anxiety and worries about breathing as this isn't her norm. Fall precautions in place. Bed alarm on and in low position. Call light within reach.
[2019-01-04 07:18] VITALS: BP 132/80
[2019-01-04 11:23] VITALS: BP 112/74
[2019-01-04 15:19] VITALS: BP 131/70
--- NOTE | 2019-01-04 15:31 | NUR ---
SW reviewed chart and spoke with nursing and attending physician. Pt was transferred to 3 from ICU and is progressing towards goals for discharge. Therapy to re-evaluate pt and [facility] to evaluate pt for possible admission to inpt acute rehab. Awaiting input from 5[facility] at this time. SW is following to assist as needed with discharge planning.
--- NOTE | 2019-01-04 19:35 | NUR ---
PATIENT CONT TO PROGRESS TOWARDS GOALS. DOES NOT SEEM TO BE IN PAIN AT THIS TIME. SHE STILL DOES HAVE SOB WITH MINIMAL EXERTION. CONSIDERING THERAPY AT THIS TIME.
[2019-01-04 20:25] VITALS: BP 147/75
--- NOTE | 2019-01-05 04:47 | NUR ---
ASSUMED PT CARE AROUND 1900. A&OX4, FORGETFUL. DENIES ANY PAIN. SOA W/ EXERTION. WORE 3L NC WHILE AWAKE. RT PLACED PT ON BIPAP DURING THE NIGHT. GIVEN BENADRYL FOR SLEEP. PT SLEPT WELL ON BIPAP. RESP EVEN AND UNLABORED. UP W/ ASSIST TO BTR TO VOID. PT IS WEAK BUT TOLERATED ACTIVITY WELL. VSS. AFIB ON TELE. FALL PRECAUTIONS IN PLACE. PROGRESSING TOWARD POC GOALS.
[2019-01-05 04:50] VITALS: BP 129/75
[2019-01-05 07:33] VITALS: BP 119/73
[2019-01-05 11:54] VITALS: BP 118/68
--- NOTE | 2019-01-05 14:27 | NUR ---
WISAM reviewed chart and spoke with nursing and attending physician. Pt is medically stable for discharge to post-acute today. SW discussed with [facility] vocational rehabilitation counselor, who states they will submit for insurance authorization today. [facility] consult was completed earlier today. WISAM is following to assist as needed with discharge planning.
[2019-01-05 15:10] VITALS: BP 114/60
--- NOTE | 2019-01-05 16:13 | NUR ---
ON-GOING ASSESSMENT: CM MET WITH PATIENT AND HER DAUGHTER AT THE BEDSIDE. CM DISCUSSED HOW [facility] HAS SUBMITTED FOR INSURANCE AUTH AND WAITING FOR A RESPONSE AT THIS TIME. CM PROVIDED PATIENT WITH A SNF LIST TO HAVE A BACKUP PLAN INCASE INSURANCE DOES NOT AUTHORIZE [facility] ACUTE REHAB. PT STATES SHE WILL LOOK IT OVER. DAUGHTER REPORTS SHE MAY BE INTERESTED IN [facility] BUT THEY WILL WAIT AND SEE. CM SPOKE WITH LIASON AT [facility] WHO STATES THEY WILL NOT HAVE A BED TOMORROW. CM WILL CONTINUE TO FOLLOW TO ASSIST NEEDED.
[2019-01-05 20:30] VITALS: BP 127/70
--- NOTE | 2019-01-06 04:31 | NUR ---
Patient's anxiety has been under control this shift with PRN xanax administered. Delisa COSTUMER ASSISTANT called due to patient requesting benadryl to help her sleep since she had it the night before and it helped tremendously. 50 mg PO benadryl order given. Patient has slept soundly. Patient on night time bipap and doing well with sats in the high 90's. Lung sounds still coarse and diminished. Patient's has been helping her to the bathroom. The patient was sitting in the chair at start of shift and seems to be getting more strength back. Patient calls out appropriately. Call light within reach. Patient making progress toward plan of care goals.
[2019-01-06 05:00] VITALS: BP 133/69
[2019-01-06 05:12] LABS: HEMATOCRIT 38.4 % (37.0-47.0); HEMOGLOBIN 12.9 gm/dL (12.0-15.0); MCH 31.6 pg (26.0-34.0); MCHC 33.7 g/dL (28.0-37.0); MCV 93.7 fL (80.0-100.0); RBC 4.1 mil/uL (4.20-5.00); RDW 13.3 % (10.5-14.5); WBC 11.4 thou/uL (4.0-11.0)
[2019-01-06 05:17] LABS: CALCIUM 8.7 mg/dL (8.5-10.1); CREATININE 0.8 mg/dL (0.6-1.0)
[2019-01-06 05:20] LABS: POTASSIUM 2.9 mmol/L (3.5-5.1)
[2019-01-06 07:30] VITALS: BP 124/80
[2019-01-06 11:53] VITALS: BP 123/67
[2019-01-06] MEDS ORDERED: CHANTIX0.5 MG PO (14:16)
[2019-01-06] MEDS ORDERED: ALPRAZOLAM 0.50.5 MG PO (14:16)
[2019-01-06] MEDS ORDERED: PREDNISONE 20 M20 MG PO (14:16)
[2019-01-06] MEDS ORDERED: IPRAT-ALBUT 0.5-3 ML PO (14:16)
[2019-01-06] MEDS ORDERED: PEPCID20 MG PO (14:16)
--- NOTE | 2019-01-06 14:17 | NUR ---
DISCHARGE NOTE: WISAM reviewed chart and spoke with nursing and attending physician. Pt is medically stable for discharge to post-acute today. WISAM discussed with [facility] account liaison. Authorization obtained from pt's insurance. Nursing to notify attending physician for discharge orders. Pt to move to 5N later today. Pt and family are aware and agreeable with discharge plan. Rehab CM to follow and assist as needed with discharge planning.
== END 2019-01-06 16:10 | DRG 871 ==
LOC: ER 18:28 → 3W 19:56 → EROBS 19:56 → 3W 19:56 → ICU 12-31 10:51 → 3W 01-03 15:41
PROVIDERS: Emergency Medicine; Hospitalist; Nurse Practitioner Acute Care; Pediatrics; ADMIT Internal Medicine
PROC: 5A09357 Assistance with Respiratory Ventilation, Less than 24 Consecutive Hours, Continuous Positive Airway Pressure (ICD-10-PCS; principal; 2018-12-31)
PROC: 5A09357 Assistance with Respiratory Ventilation, Less than 24 Consecutive Hours, Continuous Positive Airway Pressure (ICD-10-PCS; 2019-01-01)
PROC: 5A09357 Assistance with Respiratory Ventilation, Less than 24 Consecutive Hours, Continuous Positive Airway Pressure (ICD-10-PCS; 2019-01-02)
PROC: 5A09357 Assistance with Respiratory Ventilation, Less than 24 Consecutive Hours, Continuous Positive Airway Pressure (ICD-10-PCS; 2019-01-03)
PROC: 5A09357 Assistance with Respiratory Ventilation, Less than 24 Consecutive Hours, Continuous Positive Airway Pressure (ICD-10-PCS; 2019-01-04)
PROC: 5A09357 Assistance with Respiratory Ventilation, Less than 24 Consecutive Hours, Continuous Positive Airway Pressure (ICD-10-PCS; 2019-01-05)
PROC: 5A09357 Assistance with Respiratory Ventilation, Less than 24 Consecutive Hours, Continuous Positive Airway Pressure (ICD-10-PCS; 2019-01-06)
DX: A41.9 Sepsis, unspecified organism (principal); G92 Toxic encephalopathy; J96.21 Acute and chronic respiratory failure with hypoxia; J96.22 Acute and chronic respiratory failure with hypercapnia; J18.9 Pneumonia, unspecified organism; L03.116 Cellulitis of left lower limb; E87.1 Hypo-osmolality and hyponatremia; L03.115 Cellulitis of right lower limb; J44.1 Chronic obstructive pulmonary disease with (acute) exacerbation; I48.0 Paroxysmal atrial fibrillation; F41.1 Generalized anxiety disorder; I10 Essential (primary) hypertension; E87.6 Hypokalemia; F32.9 Major depressive disorder, single episode, unspecified; E87.8 Other disorders of electrolyte and fluid balance, not elsewhere classified; E83.42 Hypomagnesemia; F17.210 Nicotine dependence, cigarettes, uncomplicated; M47.892 Other spondylosis, cervical region; W18.39XA Other fall on same level, initial encounter; M47.896 Other spondylosis, lumbar region; R26.81 Unsteadiness on feet; R73.9 Hyperglycemia, unspecified; E03.9 Hypothyroidism, unspecified; Z71.6 Tobacco abuse counseling; Y93.89 Activity, other specified; Y92.89 Other specified places as the place of occurrence of the external cause; Y99.8 Other external cause status; Z86.711 Personal history of pulmonary embolism; Z86.718 Personal history of other venous thrombosis and embolism; Z98.891 History of uterine scar from previous surgery; Z79.899 Other long term (current) drug therapy; Z88.8 Allergy status to other drugs, medicaments and biological substances; Z82.49 Family history of ischemic heart disease and other diseases of the circulatory system
CPT/HCPCS: 10078; 10779; 10879

== ENCOUNTER 2019-01-06 14:41 | Inpatient (IN) | payer OTHER ==
[~2019-01-06] VITALS: Ht 154.9 cm; Wt 56.7 kg
--- NOTE | ~2019-01-06 | PLAN ---
[facility] [place] [address] REHAB UNIT PLAN OF CARE Name: ROSE HERNANDEZ Room #: 509-P [facility] IN M.R.#: [id number] Admission: 01/06/19 ������������������ Attend Phys: Itz Grande MD Discharge: ������������������ Date of : 59 Report #: [id number] THIS REPORT FOR: //name// CC: Itz Sher DATE OF SERVICE: 01/08/2019 PROGRESS NOTE/OVERALL PLAN OF CARE SUBJECTIVE: The patient was seen earlier. Last recorded temperature 36.8, pulse 80, respirations 20, blood pressure 145/53. She has been in no distress. Continuing with respiratory treatments. Utilizing a gait belt with assist of one to get up to the bathroom with staff. In physical therapy, she has been working on transfers, standby assistance to min assist with bed to chair. She is ambulating 150 feet min assist without a gait aid. In occupational therapy, lower body dressing is standby assistance. In speech therapy, she has had an evaluation with functional expression, mild cognitive deficits, moderate memory deficits. Does not have good insight into the extent of her memory deficits. ASSESSMENT: 1. Toxic metabolic encephalopathy. 2. Gait instability with decreased balance. 3. Critical severe hyponatremia. Last recorded sodium noted to be 131. 4. Hypokalemia, which resolved. 5. Acute respiratory failure. 6. Acute exacerbation of chronic obstructive pulmonary disease. 7. Bilateral lower extremity cellulitis. 8. Paroxysmal atrial fibrillation. 9. Generalized anxiety disorder. 10. Tobacco abuse. 11. Degenerative arthritis with chronic neck and back pain. PLAN: The overall plan of care is based on the preadmission screen, post-admission physician evaluation and information garnered from therapy assessments. 1. Estimated length of stay is probably at least 7-10 days, pending progress. 2. Medical prognosis is reasonably good. 3. Anticipated interventions include the interdisciplinary acute inpatient rehabilitation program with goal of maximizing the patient's functional dependence that she can hopefully return back to her prior living situation. 4. Anticipated functional outcomes would be for the patient to become modified dependent with transfers, mobility and ADLs as well as improved cognition, so that she can return back to the home setting. 5. Discharge destination would be back home with her . 6. Expected therapy by discipline includes PT, OT and speech 1 hour per day [address] [address] REHAB UNIT PLAN OF CARE Name: MARYROSE BURTON Room #: 509-P [facility] IN [facility].#: [id number] Admission: 01/06/19 ������������������ Attend Phys: Itz Grande MD Discharge: ������������������ Date of : 59 Report #: [id number] each 5 days a week throughout the duration of the acute inpatient rehabilitation stay. ��������������������������������������������� ���������������������������������������� By: ��������������������������������������������� [id number] [id number] Itz Grande MD /PMT
--- NOTE | ~2019-01-06 | H ---
[facility] [place] [address] HISTORY AND PHYSICAL Name: ROSE HERNANDEZ Room #: 509-P [facility] IN M.R.#: [id number] Admission: 01/06/19 ������������������ Attend Phys: Itz Grande MD Discharge: ������������������ Date of : 59 Report #: [id number] THIS REPORT FOR: //name// CC: Itz Sher DATE OF SERVICE: 01/06/2019 HISTORY AND PHYSICAL AND POST-ADMISSION PHYSICIAN EVALUATION HISTORY OF PRESENT ILLNESS: The patient is a 63-year-old white female originally admitted on 12/27/2018 with acute mental status changes, was noted to have a critically severe sodium of 117. She had mental status changes with confusion, toxic metabolic encephalopathy. She also had hypokalemia, bilateral lower extremity cellulitis as well as acute respiratory failure with acute exacerbation of chronic obstructive pulmonary disease. She was followed closely, treated in the intensive care unit with pulmonary medicine involved. She received BiPAP at night and nasal prong O2 during the day. She had some progress as far as her cognition. Labs are gradually improving with last sodium 131, potassium 3.6. She was noted to have a toxic metabolic encephalopathy with gait instability, decreased endurance and multiple medical comorbidities as noted above. She has not been admitted for acute in-hospital inpatient rehabilitation. PAST MEDICAL HISTORY: Includes hypertension, COPD. She had a blood clot with DVT and pulmonary embolism with control and . History of chronic neck pain and back pain. MEDICATIONS: Please see the full medication listing. This would include vitamins, herbals, and supplements. ALLERGIES: No known drug allergies. HABITS: Tobacco abuse, 1-2 packs per day, [id number]. SOCIAL HISTORY: Lives in a house with her . No assistive device, 2 steps in, 14 steps to the bedroom. She is premorbidly independent, ambulatory in the community without gait aids. works, but she had indicated that he has some flexibility. They have 6 children of which several of them are in the area. REVIEW OF SYSTEMS: Did not offer any current complaints of chest pain, shortness of breath or abdominal discomfort. No fever, chills, bowel or bladder changes. Continues with decreased endurance. No other focal extremity pain complaints. [facility] [address] [place] [address] HISTORY AND PHYSICAL Name: ROSE HERNANDEZ Room #: 509-[facility] IN .R.#: [id number] Admission: 01/06/19 ������������������ Attend Phys: Itz Grande MD Discharge: ������������������ Date of : 59 Report #: [id number] PHYSICAL EXAMINATION: GENERAL: A 63-year-old pleasant, overweight, somewhat verbose white female in no obvious distress. VITAL SIGNS: Last recorded temperature 98.4, pulse 83, respirations 18, blood pressure 125/74. She is alert, pleasant. HEENT: Appeared to be benign. Nasal prong O2 is in place. Facies are symmetric. CHEST: Some diffuse decreased breath sounds throughout both lung mishra. CARDIOVASCULAR: Sounded regular rate and rhythm. ABDOMEN: Bowel sounds positive, nontender. GENITOURINARY AND RECTAL: Deferred. EXTREMITIES: She has functional range of motion of both upper extremities with strength grade 4-/5. DTRs are trace to 1. There is some latency to her responses with some slowed cognitive processing. Does defer sound to her . Upper extremity strength is probably a grade 4-/5. Lower extremities, no focal calf swelling, functional range of motion, strength is a grade 3+ to 4-/5. There is no edema. Tone appeared to be intact. Sit to stand is min assist and she has ambulated short distance with min assist. ASSESSMENT: A 63-year-old white female with the following problem list: 1. Toxic metabolic encephalopathy. 2. Gait instability with decreased balance. 3. Critical severe hyponatremia. 4. Hypokalemia, which has resolved. 5. Acute respiratory failure. 6. Acute exacerbation of chronic obstructive pulmonary disease. 7. Bilateral lower extremity cellulitis. 8. Paroxysmal atrial fibrillation. 9. Generalized anxiety disorder. 10. Tobacco abuse. 11. Degenerative arthritis with chronic neck and back pain. PLAN: The patient is being admitted for acute in-hospital inpatient rehabilitation. From a postadmission physician evaluation perspective, there are no relevant changes since the preadmission screening. Please see the above review of prior and current medical and functional conditions and comorbidities. Please see the previous and current functional status. As far as risk of complications, the patient has multiple medical comorbidities as noted above. Initial plan of care involves the interdisciplinary acute inpatient rehabilitation program with the goal of maximizing her functional independence, so that she can hopefully return back to her prior living situation. Measurable functional goals would be for the patient to become modified independent with transfers, mobility and ADLs, so she can hopefully return back to her prior living situation. Prognosis is reasonably good with estimated length of stay probably at least 5-10 days pending progress. Potential barriers would include the patient's multiple medical comorbidities and decreased functional status. [facility] [address] [place] [address] HISTORY AND PHYSICAL Name: ROSE HERNANDEZ Room #: 509-P [facility] IN M.R.#: [id number] Admission: 01/06/19 ������������������ Attend Phys: Itz Grande MD Discharge: ������������������ Date of : 59 Report #: [id number] The patient meets diagnostic criteria for an acute in-hospital inpatient rehabilitation stay. She meets the medical necessity criteria and we will have the multiple health management consultant physicians continue to follow. She does have the tolerance for therapies and has appropriate discharge goals back to the home setting. ��������������������������������������������� ���������������������������������������� By: ��������������������������������������������� 0835 [id number] Itz Grande MD /[facility]
[~2019-01-06 14:41] MED LIST: ALPRAZOLAM 0.50.5 MG PO; ATENOLOL 100MG100 M2 PO; BINOSTO70 MG PO; CARDIZEM CD120 MG PO; CHANTIX0.5 MG PO; FLEXERIL PO; IPRAT-ALBUT 0.5-3 ML PO; NORCO 5-325 TA1 EACH PO; NORVASC5 MG PO; PAXIL10 MG PO; PEPCID20 MG PO; PREDNISONE 20 M20 MG PO; XARELTO20 MG PO; ZESTORETIC 20-1 EAC3 PO
[2019-01-06 21:06] VITALS: BP 125/74
[2019-01-07 05:27] LABS: HEMATOCRIT 36.7 % (37.0-47.0); HEMOGLOBIN 12.4 gm/dL (12.0-15.0); MCH 31.4 pg (26.0-34.0); MCHC 33.7 g/dL (28.0-37.0); MCV 93.1 fL (80.0-100.0); RBC 3.94 mil/uL (4.20-5.00)
[2019-01-07 05:37] LABS: CALCIUM 8.8 mg/dL (8.5-10.1); CREATININE 0.7 mg/dL (0.6-1.0); POTASSIUM 3.6 mmol/L (3.5-5.1)
[2019-01-07 08:00] VITALS: BP 128/94
[2019-01-07 19:23] VITALS: BP 132/81
[2019-01-08 08:47] VITALS: BP 145/53
[2019-01-08 19:30] VITALS: BP 118/78
[2019-01-09 08:05] VITALS: BP 120/69
[2019-01-09 20:03] VITALS: BP 103/57
[2019-01-10 07:15] VITALS: BP 99/51
[2019-01-10 10:26] VITALS: BP 114/69
[2019-01-10 20:10] VITALS: BP 122/59
[2019-01-11 06:22] LABS: ABSOLUTE NEUTROPHILS 12.8 thou/uL (1.4-8.2); BASOPHILS 0.2 % (0.0-2.0); EOSINOPHILS 0.3 % (0.0-3.0); HEMATOCRIT 37.9 % (37.0-47.0); HEMOGLOBIN 12.7 gm/dL (12.0-15.0); MCH 31.1 pg (26.0-34.0); MCHC 33.6 g/dL (28.0-37.0); MCV 92.6 fL (80.0-100.0); MONOCYTES 7.1 % (1.0-8.0); PLATELET COUNT 303 thou/uL (150-400); POLYS 79.4 % (36.0-66.0); RBC 4.09 mil/uL (4.20-5.00); RDW 13.3 % (10.5-14.5); WBC 16.1 thou/uL (4.0-11.0)
[2019-01-11 06:47] LABS: CALCIUM 9.1 mg/dL (8.5-10.1); CREATININE 0.7 mg/dL (0.6-1.0); MAGNESIUM 1.9 mg/dL (1.8-2.4); POTASSIUM 3.1 mmol/L (3.5-5.1)
[2019-01-11 08:12] VITALS: BP 111/62
[2019-01-11 19:40] VITALS: BP 143/61
[2019-01-12 08:09] VITALS: BP 131/80
[2019-01-12] MEDS ORDERED: IPRAT-ALBUT 0.5-3 ML PO (09:40)
[2019-01-12] MEDS ORDERED: XARELTO20 MG PO (09:40)
[2019-01-12] MEDS ORDERED: CHANTIX0.5 MG PO (09:40)
[2019-01-12] MEDS ORDERED: PEPCID20 MG PO (09:40)
[2019-01-12] MEDS ORDERED: POTASSIUM20 PO (09:40)
[2019-01-12] MEDS ORDERED: CARDIZEM CD120 MG PO (09:40)
[2019-01-12] MEDS ORDERED: PREDNISONE 10 M10 M1 PO (09:45)
[2019-01-12] MEDS ORDERED: ACYCLOVIR 400400 MG PO (09:45)
[2019-01-12] MEDS ORDERED: NEBULIZER MISCELL (10:38)
[2019-01-12 21:53] VITALS: BP 122/70
[2019-01-13 05:13] LABS: ABSOLUTE NEUTROPHILS 9.1 thou/uL (1.4-8.2); BASOPHILS 0.3 % (0.0-2.0); EOSINOPHILS 0.4 % (0.0-3.0); HEMATOCRIT 36.6 % (37.0-47.0); HEMOGLOBIN 12.4 gm/dL (12.0-15.0); LYMPHOCYTES 15.7 % (24.0-44.0); MCH 31.8 pg (26.0-34.0); MCHC 33.8 g/dL (28.0-37.0); MCV 94.1 fL (80.0-100.0); MONOCYTES 6.6 % (1.0-8.0); PLATELET COUNT 308 thou/uL (150-400); RBC 3.89 mil/uL (4.20-5.00); RDW 13.6 % (10.5-14.5); WBC 11.8 thou/uL (4.0-11.0)
[2019-01-13 05:19] LABS: CALCIUM 8.9 mg/dL (8.5-10.1); CREATININE 0.6 mg/dL (0.6-1.0); MAGNESIUM 1.9 mg/dL (1.8-2.4); POTASSIUM 3.9 mmol/L (3.5-5.1)
[2019-01-13] MEDS ORDERED: VENTOLIN HFA 1818 GM INH (08:42)
[2019-01-13] MEDS ORDERED: PREDNISONE 20 M20 MG PO (08:42)
[2019-01-13] MEDS ORDERED: ACYCLOVIR 400400 MG PO (08:46)
[2019-01-13 10:04] VITALS: BP 108/69
[2019-01-13 10:49] VITALS: BP 108/69
[2019-01-13 13:20] VITALS: BP 108/69
[2019-01-13 13:51] VITALS: BP 108/69
--- NOTE | 2019-01-16 14:36 | HC ---
[facility] [place] [address] CONSULTATION Name: ROSE HERNANDEZ Room #: 509-P [facility] IN M.R.#: [id number] Admission: 01/06/19 ������������������ Attend Phys: Itz Grande MD Discharge: 01/13/19 ������������������ Date of : 59 Report #: [id number] THIS REPORT FOR: //name// CC: Itz Grande Jasmina Sher DATE OF SERVICE: 01/09/2019 Neurobehavioral Status Examination ATTENDING PHYSICIAN: Itz Grande MD DB2 DEVELOPER: Abdon Fitch, PhD CLINICAL PRESENTATION: The patient is a 63-year-old female admitted to [facility] on 12/27/2018 with acute mental status changes. She was noted to have a critically severe sodium level of 117. She was diagnosed with a toxic metabolic encephalopathy along with confusion. PAST MEDICAL HISTORY: Includes hypertension, COPD, blood clot with DVT, and pulmonary embolism with control and . History of chronic neck and back pain is also reported. It should be noted that the patient and her report that she had a severe fall approximately 2 weeks ago in which she sustained a loss of consciousness. She had 2 black eyes subsequent to the fall. The day of her fall, she was discovered by her . She was very lethargic and her initiated emergency services to bring her to the hospital. Her assessment on admission to the rehab unit is a toxic metabolic encephalopathy, gait instability with decreased balance, critically severe hyponatremia, hypokalemia, which has resolved, acute respiratory failure, acute exacerbation of COPD, bilateral lower extremity cellulitis, paroxysmal atrial fibrillation, generalized anxiety disorder, tobacco abuse and degenerative arthritis with chronic neck and back pain. A complete description of her medical condition and history along with medications can be found in her medical record. Neuropsychological consultation was requested to provide assistance in the assessment of cognitive and emotional status and to provide recommendations and services. Prior to this recent series of medical events, she was independent with all instrumental activities of daily living including driving. The patient is a high school graduate with a 2-year associate of arts degree. She has 6 children. Her family is very supportive. She does not report a prior history of treatment for depression or anxiety. She had worked for a [employer] business prior to retiring. [facility] [address] [place] [address] CONSULTATION Name: ROSE HERNANDEZ Room #: 509-P [facility] IN ..#: [id number] Admission: 01/06/19 ������������������ Attend Phys: Itz Grande MD Discharge: 01/13/19 ������������������ Date of : 59 Report #: [id number] TECHNIQUES UTILIZED: Clinical interview, review of medical records, staff consultation and behavioral observation, family interview - , Mini-Mental Status Exam 2 standard version, clock drawing, and brief verbal fluency assessment EXAMINATION FINDINGS: The patient was alert and partially cooperative with the assessment. Her mood was irritable and she required encouragement to complete the assessment. She describes initially having anxiety and depression in response to recent events, but feels like it has resolved. As indicated, her mood was irritable throughout the evaluation. She does not describe difficulty with sleep, appetite, memory or word finding. Her also does not report her as having any current cognitive difficulty. Her performance on the Mini-Mental Status Exam 2 brief version was within normal limits with a raw score of 14/16. Performance on the MMSE 2 standard was within normal limits with a raw score 27/30. The patient had difficulty with clock drawing and both number placement and hand placement. She left out a number and also perseverated. Difficulty with visuospatial construction is noted. Brief letter fluency assessment using 1 letter as a T score of 37 and percentile rank at 10. Category fluency utilizing 1 category was a T score of 30 and percentile rank of 2. The patient is showing evidence of cognitive disorder. Impairment with verbal fluency often suggests decreased thought organization executive dysfunction. Decreased insight is noted to the extent of her deficits. Her mood is irritable with decreased tolerance for frustration. 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 Generalized anxiety disorder by history. RECOMMENDATIONS: The patient would benefit from an outpatient neuropsychological assessment to clarify cognitive functioning. Continued assistance in the development of compensatory strategies will be helpful from speech therapy. Family education will likely be necessary, as the patient will require increased monitoring to maintain safety upon her return home. Recovery from the concussion is typically very good. Although recovery is variable and can take several weeks. Decreasing environmental stress will also likely assist in her overall recovery. [address] [address] CONSULTATION Name: GAMALIELTalhaROSE BURTON Room #: 509-P [facility] IN M.R.#: [id number] Admission: 01/06/19 ������������������ Attend Phys: Itz Grande MD Discharge: 01/13/19 ������������������ Date of : 59 Report #: [id number] Thank you very much for allowing me to provide the consultation on this patient. ��������������������������������������������� <ELECTRONICALLY SIGNED> ���������������������������������������� By: Abdon Fitch, PhD ��������������������������������������������� 01/16/19 1436 [id number] Abdon Fitch, PhD /nt
== END 2019-01-13 13:58 | disposition home health service (06) | DRG 91 ==
LOC: ENTRNSPT 01-13 13:45 → EDTRNSPTSTS 01-13 13:47
PROVIDERS: Nurse Practitioner; Nurse Practitioner Family; ADMIT Physical Medicine & Rehabilitation
PROC: 5A09357 Assistance with Respiratory Ventilation, Less than 24 Consecutive Hours, Continuous Positive Airway Pressure (ICD-10-PCS; principal; 2019-01-10)
DX: G92 Toxic encephalopathy (principal); J96.21 Acute and chronic respiratory failure with hypoxia; J96.22 Acute and chronic respiratory failure with hypercapnia; J18.9 Pneumonia, unspecified organism; E87.1 Hypo-osmolality and hyponatremia; J44.1 Chronic obstructive pulmonary disease with (acute) exacerbation; L03.116 Cellulitis of left lower limb; L03.115 Cellulitis of right lower limb; J44.0 Chronic obstructive pulmonary disease with (acute) lower respiratory infection; B00.89 Other herpesviral infection; R26.9 Unspecified abnormalities of gait and mobility; E78.5 Hyperlipidemia, unspecified; I48.0 Paroxysmal atrial fibrillation; F41.1 Generalized anxiety disorder; M47.812 Spondylosis without myelopathy or radiculopathy, cervical region; E83.42 Hypomagnesemia; E87.6 Hypokalemia; M47.816 Spondylosis without myelopathy or radiculopathy, lumbar region; I10 Essential (primary) hypertension; J44.9 Chronic obstructive pulmonary disease, unspecified; F17.210 Nicotine dependence, cigarettes, uncomplicated; E87.8 Other disorders of electrolyte and fluid balance, not elsewhere classified; R73.9 Hyperglycemia, unspecified; E03.9 Hypothyroidism, unspecified; G47.33 Obstructive sleep apnea (adult) (pediatric); Z86.718 Personal history of other venous thrombosis and embolism; Z86.711 Personal history of pulmonary embolism; Z71.6 Tobacco abuse counseling
CPT/HCPCS: 10112